=== PATIENT | male | born 1960 | race Caucasian/White ===

== ENCOUNTER 2021-12-20 19:10 | Emergency (ER) | payer MEDICAID, OTHER ==
[2021-12-20] MEDS ORDERED: HYDROmorphone 1 MG/ML Syringe IVPUSH ONE (19:20)
[2021-12-20] MEDS ORDERED: Ondansetron 4 MG/2 ML SDV IVPUSH ONE (19:20)
[2021-12-20] MEDS ORDERED: Lidocaine 1% 4 ML ONE (20:47)
[2021-12-20] MEDS ORDERED: Propofol 200 MG/20 ML SDV ONE (20:48)
== END 2021-12-20 22:10 | disposition home or self-care (01) ==
LOC: JD.ED 19:10
DX: S43.005A Unspecified dislocation of left shoulder joint, initial encounter (principal); I10 Essential (primary) hypertension; Z87.891 Personal history of nicotine dependence; W18.40XA Slipping, tripping and stumbling without falling, unspecified, initial encounter; Y92.69 Other specified industrial and construction area as the place of occurrence of the external cause
CPT/HCPCS: 23650; 73030; 96374; 96375; 99283; J1170; J2405; J2704; 01620